=== PATIENT | male | born 2000 | race Caucasian/White ===

== ENCOUNTER 2024-11-03 11:43 | Emergency (ER) | payer OTHER, SELFPAY ==
--- NOTE | ~2024-11-03 | XR_ITS ---
XR elbow LT min 3V Ordering provider: Nikolay Rascon MD History: . lateral elbow pain . Comparison: None. FINDINGS: BONES: No acute fracture or dislocation. JOINT SPACES: Normal. SOFT TISSUES: Normal. No definite joint effusion. IMPRESSION: No acute osseous abnormality left elbow. Reviewed, dictated and finalized at location A.
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
[2024-11-03 11:54] VITALS: BP 141/88; PULSE 62; RESP 20; TEMP 36.6; O2SAT 100
[2024-11-03] MEDS: IBUPROFEN 400 MG TABLET 800 MG PO (13:27)
[2024-11-03] MEDS: HYDROcodone/acetaminophen (*CRX) 5-325 MG TABLET 1 TAB PO (13:28)
[2024-11-03] MEDS: methocarbamoL 750 MG TABLET PO (13:28)
--- OUTSIDE RECORDS SUMMARY | 2024-11-03 13:33 | XMS_ITS | Continuity of Care Document ---
Author Organization [facility] Address [address] [facility] [place] [address] Phone Care Team Providers Care Appellate Law Clerk Name Role Phone Robin Etienne MD Unavailable Unavailable Allergies, Adverse Reactions, Alerts Substance Reaction Status Criticality Penicillins Active No Information Medications Medication Instructions Dosage Effective Dates (start - stop) Status Comments Adderall 20 mg tablet take 20 mg tablet in the morning and 10 mg around early afternoon - Active meloxicam 15 mg tablet take 1 tablet by oral route every day 15 MG - Active Procedures Procedure Date OFFICE/OUTPATIENT VISIT, EST OFFICE/OUTPATIENT VISIT, EST OFFICE/OUTPATIENT VISIT, EST OFFICE/OUTPATIENT VISIT, EST OFFICE/OUTPATIENT VISIT, EST OFFICE/OUTPATIENT VISIT, EST OFFICE/OUTPATIENT VISIT, EST OFFICE/OUTPATIENT VISIT, EST PREV VISIT, NEW, AGE 18-39 OFFICE/OUTPATIENT VISIT, NEW Advance Directives Directive Yes / No Effective Date File Name No Information Encounters Encounter Description Practice Location Reason(s) For Visit Diagnoses Date Provider Providers Copied on Encounter [facility], [address] [place], [place], [id number], tel:[phone] [facility] No Information Lowell Kelly. [address] [facility] [place], [id number] , [place]. tel:[phone] OFFICE/OUTPA TIENT VISIT, [facility], [address], [place], [place], [id number], [place] tel:[phone] [facility] ADD (chief complaint) anxiety1 (chief complaint) back pain1 (chief complaint) Generalized Anxiety DisorderAttention deficitLumbago 4 Lowell Connell [address], [place], [place], [address] , [place]. tel:[phone] OFFICE/OUTPA TIENT VISIT, [facility], [address], [place], [place], [address], [place] [phone] [facility] ADD (chief complaint) HTN (chief complaint) anxiety1 (chief complaint) Attention deficitEssential (primary) hypertensionGeneral ized Anxiety Disorder 3 Lowell Connell [address], [place], [place], [address] , [place]. tel: [phone] OFFICE/OUTPA TIENT VISIT, [facility], [address], [place], [address], [place] tel:[phone] [facility] ADD (chief complaint) anxiety1 (chief complaint) Attention deficitEssential (primary) hypertensionGeneral ized Anxiety Disorder 3 Lowell Connell [address], [place], [place], [address] , [place]. tel:[phone] OFFICE/OUTPA TIENT VISIT, [facility], [address], [place], [address], [place] tel:[phone] [facility] ADD (chief complaint) urinary frequency1 (chief complaint) Urinary frequencyAttention deficitEssential (primary) hypertensionAbnorma l weight loss 3 Lowell Connell [address], [place], [address] , [place]. [phone] OFFICE/OUTPA TIENT VISIT, [facility], [address], [place], [address], [place] tel:[phone] [facility] ADD (chief complaint) Attention deficit 2 Etienne Robin. [address], [place], [address] , [place]. tel:[phone] OFFICE/OUTPA TIENT VISIT, [facility], [address], [place], [address], [place] tel:[phone] [facility] anxiety1 (chief complaint) fatigue1 (chief complaint) weight los1 (chief complaint) HypersomniaGenerali zed Anxiety DisorderAttention deficitAbnormal weight loss 2 Etienne Robin. [address], [place], [place], [address] , [place]. tel:[phone] OFFICE/OUTPA TIENT VISIT, [facility], [address], [place], [address], [place] tel:[phone] [facility] anxiety1 (chief complaint) ADD (chief complaint) HypersomniaGenerali zed Anxiety Disorder 2 Etienne Robin. [address], [place], [address] , [place]. tel:[phone] OFFICE/OUTPA TIENT VISIT, [facility], [address], [place], [address], [place] tel:[phone] [facility] fatigue1 (chief complaint) high b12 (chief complaint) anxiety1 (chief complaint) ADD (chief complaint) Attention deficitGeneralized hyperhidrosisGenera lized Anxiety DisorderHypersomnia Other specified hyperalimentation 1 Lowell Robin. [address], [place], [address] , [place]. tel:[phone] PREV VISIT, NEW, AGE 18-39 [facility], [address], [place], [address], [place] tel:[phone] [facility] PHysical (chief complaint) Encounter for general adult medical exam w abnormal findingsFatigueAtte ntion deficitGeneralized hyperhidrosisGenera lized Anxiety DisorderDecreased libido 1 Lowell Kelly. [address], [place], [address] , [place]. tel: [phone] Family History Family Member Type Diagnosis Age At Onset Father Problem unknown Mother Problem Hypertension Brother Problem Depression Payers Payer name Insurance type Covered democrat ID Authoriza tion(s) No Information Social History Type Description Quantity Date Captured Comments Sex Male Smoking Status No Information Chief Complaint And Reason For Visit No Information Plan Of Treatment Date Type Action Status Referral Ordered: LUMBAR XRAY AP AND LAT ONLY ordered Referral Ordered: SLEEP STUDY, ATTENDED ordered History Of Present Illness Encounter Date Complaint History Of Prese nt Illness back pain1 Pt has chronic a nd intermittent low back pain for close to 10 years Pt used to play sports Pt denies any injury Pt denies any sciatica or any neuropathy Pt denies any loss of bowel or bladder control or saddle area paresthesia. pt has been having persistent low back pain x 2 months, worse in the morning and improves with ambulation Pt has not tried any medication for it. Pt c/o sharp and dull ache. anxiety1 Pt has chronic a nxiety Pt takes propranolol PRN and doing ok Pt denies any chest pain or headache or sob ADD Patient has ADD. Patient has inattentive type. Patient feels scatterbrained. Patient feel poor focus and difficulty completing tasks. Patient states that Adderall is helping with symptoms. Patient feels more focused. Pt feels more energy. Patient denies any headache, dry mouth, headache, chest pain. Patient denies any appetite loss. HTN Pt takes propran olol and his bp is ok Pt denies any dizziness, chest pain sob anxiety1 Pt has chronic a nxiety Pt denies any depression or any suicidal or homicidal thought Pt denies any crying spells. Pt states that propranolol works well to control his anxiety. he run out of propranolol for several days and his anxiety is getting worse ADD Patient has ADD. Patient has inattentive type. Patient feels scatterbrained. Patient feel poor focus and difficulty completing tasks. Patient states that Adderall is helping with symptoms. Patient feels more focused. Pt feels more energy. Patient denies any headache, dry mouth, headache, chest pain. Patient denies any appetite loss. anxiety1 Pt has been havi ng more anxiety lately with frequent panic attacks Pt denies any depression or any suicidal or homicidal thought .Pt denies any crying spells. Pt also notices that his BP has been around 150/90 at home. Pt denies any chest pain or headache ADD Patient has ADD. Patient has inattentive type. Patient feels scatterbrained. Patient feel poor focus and difficulty completing tasks. Patient states that Adderall is helping with symptoms. Patient feels more focused. Pt feels more energy. Patient denies any headache, dry mouth, headache, chest pain. Patient denies any appetite loss. ADD Patient has ADD. Patient has inattentive type. Patient feels scatterbrained. Patient feel poor focus and difficulty completing tasks. Patient states that Adderall is helping with symptoms. Patient feels more focused. Pt feels more energy. Patient denies any headache, dry mouth, headache, chest pain. Patient denies any appetite loss. urinary frequency1 Pt c/o urinar y frequency x 6 months. Pt also c/o dry skin, some mild dizziness and orthostasis. Pt denies any chest pain or headache pt feels fatigue Pt has mild HTn Pt denies any chest pain or headache Pt denies any dysuria or penile discharge ADD Patient has ADD. Patient has inattentive type. Patient feels scatterbrained. Patient feel poor focus and difficulty completing tasks. Patient states that Adderall is helping with symptoms. Patient feels more focused. Pt feels more energy. Patient denies any headache, dry mouth, headache, chest pain. Patient denies any appetite loss. weight los1 Pt has been inte ntionally losing weight. Pt denies any nausea, vomiting, appetite loss, early satiety, GI bowel change, GERD, blood in stool, etc fatigue1 Pt has hypersomn ia and fatigue with ADD pt states that adderall is working very well for him. he states that he feels more alert and awake and more focused with concentration during the day. Pt denies any insomnia. Pt denies any side effects. Pt states that he has been taking 10 mg adderall BID since 20 mg in AM does not last very long and he feels loss of medication effects in the early afternoon. anxiety1 Pt has mild anxi ety symptoms. Pt denies any depression or any suicidal or homicidal thought Pt denies any crying spells. Pt has not been taking propranolol for a while since his anxiety is improving with adderall. Pt denies any chest pain or palpitation. ADD Pt has hypersomn ia and fatigue with ADD pt states that adderall is working very well for him. Pt could not afford vyvanse. he states that he feels more alert and awake and more focused with concentration during the day. Pt denies any insomnia. Pt denies any side effects anxiety Pt has mild anxi ety symptoms Pt denies any depression or any suicidal or homicidal thought Pt denies any crying spells. Pt has been taking propranolol on average once per day and some day he does not have to take at all. He states that it is working well for his anxiety ADD Patient has ADD symptoms. Patient feels scatterbrained. Patient feel poor focus and difficulty completing tasks, which is affecting his work as well. 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 Pt also has hard time following instructions. Pt states that along with his daily fatigue, he feels very poorly throughout the day and also has poor performance at work as well. anxiety1 Pt has chronic a nxiety with mild depression Pt has panic attacks. Pt denies any suicidal or homicidal thought Pt denies any crying spells. Pt states that propranolol is really helping him with his anxiety symptoms .He also feels much less sweaty around his armpit with propranolol. Pt only takes propranolol PRn and on average once per day, which is working well so far. Pt denies any chest pain or sob or dizziness. high b12 Pt has high B12. Pt has been taking B12 supplement, which he stopped after lab. He took B12 due to fatigue fatigue Pt feels extreme ly fatigue chronically. Pt does snore at night. He wakes up feeling tired and feeling severely fatigue throughout the day as well. Pt had negative sleep study PHysical Pt needs annual physical Pt thinks that he may have low T. pt has insomnia and he wakes up frequently at night for unknown reason. Pt denies any need to use bathroom at night and he denies any sob at night .Pt does not think he snores at night but his g/f states that he snores sometimes but not loud. Pt feels very fatigue after waking up and he feels tired all day. Pt states that the fatigue causes him to have poor motivation during the day. Pt feels that he has poor libido without ED. . Pt feels mildly depressed .Pt denies any suicidal or homicidal thought Pt denies any crying spells .Pt took lexapro several years ago which did help but made him feeling emotionless so he weaned himself off the lexapro long time ago Pt denies any suicidal or homicidal thought. Pt has occasional crying spells. Pt also feels very difficulty with focus and concentration. Pt has hard time completing tasks. Pt feels easily distracted. Pt feels overwhelmed. Pt has hard time organizing himself .Pt does use pre-work out sometimes but he does not use any testosterone supplement currently. He did use SARMs one years ago. Pt denies any testicular pain or nodule or atrophy. Pt also has hyperhidrosis both armpit and social anxiety as well. Instructions Date Instruction Additional Infor belen No Information Assessments Type Assessment Date No Information
--- OUTSIDE RECORDS SUMMARY | 2024-11-03 13:33 | XMS_ITS | Referral Summary ---
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 (Primary Dx); Chronic anxiety from Last 3 Months Allergies Active Allergy Reactions Criticality Noted Date Comments Amoxicillin-Pot Clavulanate Penicillin G Rash Medium 02/18/2024 Medications propranoloL (INDERAL) 20 mg tablet Take 1 tablet (20 mg total) by mouth 2 (two) times a day as needed (180) 180 tablet 1 02/18/2024 Active dextroamphetamin e-amphetamine (ADDERALL) 10 mg tablet Take 1 tablet (10 mg total) by mouth 2 (two) times a day 60 tablet 07/17/2024 Active Active Problems Problem Noted Date Diagnosed Date Underweight 08/31/2024 Attention deficit disorder (ADD) without hyperac tivity 02/16/2024 Assessment & Plan (09/02/2024 11:35 AM GENERAL PEDIATRICIAN): Continue Adderall at same dosage. Well controlled. Assessment & Plan (05/25/2024 1:22 PM GENERAL PEDIATRICIAN): Continue Adderall at same dosage. Well controlled. Chronic anxiety 02/16/2024 Assessment & Plan (09/02/2024 11:35 AM GENERAL PEDIATRICIAN): Continue Inderal at same dosage. Well controlled. Assessment & Plan (05/25/2024 1:22 PM GENERAL PEDIATRICIAN): Continue Inderal at same dosage. Well controlled. Chordee 04/25/2016 Immunizations Immunization Administration Dates Next Due DTaP 05/12/2003 HiB 05/12/2003 IPV 05/12/2003 Influenza, Trivalent, IM (MDV) 07/25/2012 Influenza, Unspecified 05/26/2024(Deferr ed: Patient decision),04/14/2023(Deferred: Patient decision),05/03/2005,04/13/2004 MMR 05/12/2003 Meningococcal MCV4P (Menactra) 04/26/2017,2013 Tdap 11/01/2022,02/21/2011 Varicella 02/21/2011 Social History Tobacco Use Types Packs/Day Years Used Date Smoking Tobacco: Former Cigarettes 0.3 3.3 2 2019 Passive Smoke Exposure: Past Tobacco Cessation:Counseling Given: No AUDIT-C Answer Date Recorded Q1: How often do you have a drink containing alc ohol? 2-3 times a week 09/03/2024 Q2: How many drinks containi ng alcohol do you have on a typical day when you are drinking? 1 or 2 09/03/2024 Q3: How often do you have si x or more drinks on one occasion? Never 09/03/2024 PHQ-2 Answer Date Recorded PHQ-2 Total Score (If total score is 3 or more points, staff should administer the PHQ-9) 0 09/03/2024 Sex and Gender Information Value Date Recorded Sex Assigned at Not on file Legal Sex Male 6:05 AM GENERAL PEDIATRICIAN Gender Identity Not on file Sexual Orientation Not on file Last Filed Vital Signs Vital Sign Reading Time Taken Comments Blood Pressure 124/78 09/03/2024 11:09 AM GENERAL PEDIATRICIAN Pulse 70 09/03/2024 11:09 AM GENERAL PEDIATRICIAN Temperature 36.4 C (97.6 F) 09/03/2024 11:09 AM GENERAL PEDIATRICIAN Respiratory Rate 16 09/03/2024 11:0 9 AM GENERAL PEDIATRICIAN Oxygen Saturation 100% 09/03/2024 11: 09 AM GENERAL PEDIATRICIAN Inhaled Oxygen Concentration - - Weight 79.7 kg (175 lb 12.8 oz) 025 11:09 AM GENERAL PEDIATRICIAN Height 188 cm (6' 2.02 ) 09/03/2024 11: 09 AM GENERAL PEDIATRICIAN Body Mass Index 22.56 09/03/2024 11:09 AM GENERAL PEDIATRICIAN Plan of Treatment Not on file Insurance [facility] Care Teams Licensed Esthetician Relationship Specialty Start Date End Date nUruly Rouse MD [address] [place] [address] PCP - General Family Medicine 02/18/24
--- OUTSIDE RECORDS SUMMARY | 2024-11-03 13:33 | XMS_ITS | Clinical Summary ---
Author Organization [facility] [address] [facility] Address [address] [place] [address] Care Team Providers Care Radio Board Operator Announcer Name Role Phone Unruly Rouse MD Primary Care Provider [phone]- [phone] Allergies Active Allergy Reactions Criticality Noted Date [...] 02/16/2024 Assessment & Plan (09/02/2024 11:35 AM GOODWILL REPRESENTATIVE): Continue Adderall at same dosage. Well controlled. Assessment & Plan (05/25/2024 1:22 PM GOODWILL REPRESENTATIVE): Continue Adderall at same dosage. Well controlled. Chronic anxiety 02/16/2024 Assessment & Plan (09/02/2024 11:35 AM GOODWILL REPRESENTATIVE): Continue Inderal at same dosage. Well controlled. Assessment & Plan (05/25/2024 1:22 PM GOODWILL REPRESENTATIVE): Continue Inderal at same dosage. Well controlled. Chordee 04/25/2016 Encounters Date Type Department Care Team Description 09/03/2024 11:15 AM GOODWILL REPRESENTATIVE Office Visit [facility] Primary Care [address] [place] [address] Unruly Rouse MD Attention deficit disorder (ADD) without hyperactivity (Primary Dx); Chronic anxiety from Last 3 Months Immunizations Immunization Administration Dates Next Due DTaP 05/12/2003 HiB 05/12/2003 IPV 05/12/2003 Influenza, Trivalent, IM (MDV) 07/25/2012 Influenza, Unspecified 05/26/2024(Deferr ed: Patient decision),04/14/2023(Deferred: Patient decision),05/03/2005,04/13/2004 MMR 05/12/2003 Meningococcal MCV4P (Menactra) 04/26/2017,2013 Tdap 11/01/2022,02/21/2011 Varicella 02/21/2011 Surgical History Surgery Date Site/Laterality Comments WISDOM TOOTH EXTRACTION SKIN CANCER EXCISION back THYROID SURGERY Medical History Medical History Date Comments ADHD (attention deficit hyperactivity disorder) Tourette syndrome Mild sleep apnea Family History Medical History Relation Name Comments Hypertension Father Breast cancer Mother Hypertension Mother Family history of hypertension - (Added by TW Conv) Relation Name Status Comments Father Alive Mother Alive Social History Tobacco Use Types Packs/Day Years [...] on file Legal Sex Male 6:05 AM GOODWILL REPRESENTATIVE Gender Identity Not on file Sexual Orientation Not on file Obstetrics History Last Filed Vital Signs Vital Sign Reading Time Taken Comments Blood Pressure 124/78 09/03/2024 11:09 AM GOODWILL REPRESENTATIVE Pulse 70 09/03/2024 11:09 AM GOODWILL REPRESENTATIVE Temperature 36.4 C (97.6 F) 09/03/2024 11:09 AM GOODWILL REPRESENTATIVE Respiratory Rate 16 09/03/2024 11:0 9 AM GOODWILL REPRESENTATIVE Oxygen Saturation 100% 09/03/2024 11: 09 AM GOODWILL REPRESENTATIVE Inhaled Oxygen Concentration - - Weight 79.7 kg (175 lb 12.8 oz) 025 11:09 AM GOODWILL REPRESENTATIVE Height 188 cm (6' 2.02 ) 09/03/2024 11: 09 AM GOODWILL REPRESENTATIVE Body Mass Index 22.56 09/03/2024 11:09 AM GOODWILL REPRESENTATIVE Plan of Treatment Health Maintenance Due Date Last Done Comments Hepatitis C Screening 1999 Varicella Vaccines (2 of 2 - 2-dose childhood series) 05/16/2011 02/21/2011 HPV Vaccines (1 - Male 3-dos e series) 2014 Hepatitis B Screening 2017 Regular Well Visit/Exam 18-64 2017 Covid-19 Vaccine (2 - 2023-2 5 season) 2024 09/22/2020 Influenza Vaccine (#1) 2025 3, 05/03/2005, 04/13/2004 Postponed from 03/15/2024 (Patient declined, but will receive in the future) Depression Screening 09/03/2025 09/03/2024, 05/26/2024, 02/18/2024 DTaP/Tdap/Td Vaccine (4 - Td or Tdap) 11/01/2032 11/01/2022, 02/21/2011, 05/12/2003 Pneumococcal vaccine <65 Aged Out No longer eligible based on patient's age to complete this topic Insurance [facility] Care Teams Radio Board Operator Announcer Relationship Specialty Start Date End Date Unruly Rouse MD [address] [place] [address] PCP - General Family Medicine 02/18/24
--- OUTSIDE RECORDS SUMMARY | 2024-11-03 13:33 | XMS_ITS | Patient Health Record ---
Author Organization [facility] Planning Address [address] [address] [address] [place] [address] Care Team Providers Care Technical Training Specialist Name Role Phone Abimael Braun Primary Care Provider Reason For Referral No Information Social History Tobacco Use: Social History Observation Description Date Details (start date - stop date) Current Smoker NA - NA Tobacco Use/Smoking Question Answer Notes Are you a current smoker How often do you smoke cigarettes? every day How many cigarettes a day do you smoke? 5 or les s Problems No Known Problems Plan Of Treatment No Information Insurance Providers Payer Name Payer Address Payer Phone Subscriber Number Group Number Insured Name Patient Relationship to Insured Coverage Start Date [facility]age End [facility] [address] [place] [address] [id number] Lexa Schmitt Self - patient is the insured 2020 Medical (General) History Surgical History Surgery Date(Month/Year)
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
--- OUTSIDE RECORDS SUMMARY | 2024-11-03 14:06 | XMS_ITS | Continuity of Care Document ---
Author Organization [facility] Address [address] [facility] [place] [address] Phone Care Team Providers Care Poultry Picking Machine Tender Name Role Phone Robin Etienne MD Unavailable [...] Diagnoses Date Provider Providers Copied on Encounter [facility], [address] [place], [place], [id number], tel:[phone] [facility] No Information Lowell Kelly. [address] [facility] [place], [place], [address] , [place]. tel:[phone] OFFICE/OUTPA TIENT VISIT, [facility], [address], [place], [place], [id number], [place] tel:[phone] [facility] ADD (chief complaint) anxiety1 (chief complaint) back pain1 (chief complaint) Generalized Anxiety DisorderAttention deficitLumbago 4 Lowell Connell [address], [place], [place], [address] , [place]. tel:[phone] OFFICE/OUTPA TIENT VISIT, [facility], [address], [place], [place], [address], [place] [phone] [facility] ADD (chief complaint) HTN (chief complaint) anxiety1 (chief complaint) Attention deficitEssential (primary) hypertensionGeneral ized Anxiety Disorder 3 Lowell Connell [address], [address], [place], [place], [address] , [place]. tel:[phone] OFFICE/OUTPA TIENT VISIT, [facility], [address], [place], [place], [address], [place] tel:[phone] [facility] ADD (chief complaint) anxiety1 (chief complaint) Attention deficitEssential (primary) hypertensionGeneral ized Anxiety Disorder 3 Lowell Connell [address], [place], [place], [address] , [place]. tel:[phone] OFFICE/OUTPA TIENT VISIT, [facility], [address], [place], [place], [address], [place] tel:[phone] [facility] ADD (chief complaint) urinary frequency1 (chief complaint) Urinary frequencyAttention deficitEssential (primary) hypertensionAbnorma l weight loss 3 Lowell Connell [address], [place], [place], [address] , [place]. [phone] OFFICE/OUTPA TIENT VISIT, [facility], [address], [place], [place], [address], [place] tel:[phone] [facility] ADD (chief complaint) Attention deficit 2 Etienne Robin. [address], [place], [place], [address] , [place]. tel:[phone] OFFICE/OUTPA TIENT VISIT, [facility], [address], [place], [place], [address], [place] tel:[phone] [facility] anxiety1 (chief complaint) fatigue1 (chief complaint) weight los1 (chief complaint) HypersomniaGenerali zed Anxiety DisorderAttention deficitAbnormal weight loss 2 Etienne Robin. [address], [place], [place], [address] , [place]. tel:[phone] OFFICE/OUTPA TIENT VISIT, [facility], [address], [place], [place], [address], [place] tel:[phone] [facility] anxiety1 (chief complaint) ADD (chief complaint) HypersomniaGenerali zed Anxiety Disorder 2 Etienne Robin. [address], [place], [place], [address] , [place]. tel:[phone] OFFICE/OUTPA TIENT VISIT, [facility], [address], [place], [place], [address], [place] tel:[phone] [facility] fatigue1 (chief complaint) high b12 (chief complaint) anxiety1 (chief complaint) ADD (chief complaint) Attention deficitGeneralized hyperhidrosisGenera lized Anxiety DisorderHypersomnia Other specified hyperalimentation 1 Lowell Robin. [address], [place], [place], [address] , [place]. tel:[phone] PREV VISIT, NEW, AGE 18-39 [facility], [address], [place], [place], [address], [place] tel:[phone] [facility] PHysical (chief complaint) Encounter for general adult medical exam w abnormal findingsFatigueAtte ntion deficitGeneralized hyperhidrosisGenera lized Anxiety DisorderDecreased libido 1 Lowell Kelly. [address], [place], [place], [address] , [place]. [phone] Family History Family Member Type Diagnosis Age At Onset Father Problem unknown Mother Problem Hypertension Brother Problem Depression Payers Payer name Insurance type Covered libertarian ID Authoriza tion(s) No Information Social History Type Description Quantity Date Captured Comments Sex Male Smoking Status No Information Chief Complaint And Reason For Visit No Information Plan Of Treatment Date Type Action Status Referral Ordered: LUMBAR XRAY AP AND LAT ONLY ordered Referral Ordered: SLEEP STUDY, ATTENDED ordered History Of Present Illness Encounter Date Complaint History Of Prese nt Illness ADD Patient has ADD. Patient has inattentive type. Patient feels scatterbrained. Patient feel poor focus and difficulty completing tasks. Patient states that Adderall is helping with symptoms. Patient feels more focused. Pt feels more energy. Patient denies any headache, dry mouth, headache, chest pain. Patient denies any appetite loss. anxiety1 Pt has chronic a nxiety Pt takes propranolol PRN and doing ok Pt denies any chest pain or headache or sob back pain1 Pt has chronic a nd [...] it. Pt c/o sharp and dull ache. HTN Pt takes propran olol and his bp is ok Pt denies any dizziness, chest pain sob ADD Patient has ADD. Patient has inattentive type. Patient feels scatterbrained. Patient feel poor focus and difficulty completing tasks. Patient states that Adderall is helping with symptoms. Patient feels more focused. Pt feels more energy. Patient denies any headache, dry mouth, headache, chest pain. Patient denies any appetite loss. anxiety1 Pt has chronic a nxiety Pt [...] denies any appetite loss. anxiety1 Pt has mild anxi ety symptoms. Pt denies any depression or any suicidal or homicidal thought Pt denies any crying spells. Pt has not been taking propranolol for a while since his anxiety is improving with adderall. Pt denies any chest pain or palpitation. fatigue1 Pt has hypersomn ia and fatigue [...] of medication effects in the early afternoon. weight los1 Pt has been inte ntionally losing weight. Pt denies any nausea, vomiting, appetite loss, early satiety, GI bowel change, GERD, blood in stool, etc anxiety1 Pt has mild anxi ety symptoms Pt denies any depression or any suicidal or homicidal thought Pt denies any crying spells. Pt has been taking propranolol on average once per day and some day he does not have to take at all. He states that it is working well for his anxiety ADD Pt has hypersomn ia and fatigue with ADD pt states that adderall is working very well for him. Pt could not afford vyvanse. he states that he feels more alert and awake and more focused with concentration during the day. Pt denies any insomnia. Pt denies any side effects fatigue1 Pt feels extreme ly fatigue chronically. Pt does snore at night. He wakes up feeling tired and feeling severely fatigue throughout the day as well. Pt had negative sleep study high b12 Pt has high B12. Pt has been taking B12 supplement, which he stopped after lab. He took B12 due to fatigue anxiety1 Pt has chronic a nxiety with [...] any chest pain or sob or dizziness. ADD Patient has ADD symptoms. Patient feels scatterbrained. Patient feel poor focus and difficulty completing tasks, which is affecting his work as well. 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 Pt also has hard time following instructions. Pt states that along with his daily fatigue, he feels very poorly throughout the day and also has poor performance at work as well. PHysical Pt needs annual physical Pt thinks [...]
--- OUTSIDE RECORDS SUMMARY | 2024-11-03 14:06 | XMS_ITS | Referral Summary ---
Author Organization [facility] [address] [facility] Address [address] [place] [address] Care Team Providers Care Vice President Of Software Development Name Role Phone Unruly Rouse MD Primary Care Provider [phone] Encounters Date Type Department Care Team Description 09/03/2024 11:15 AM CRIME SCENE EXAMINER Office Visit [facility] [address] [place] [address] Unruly Rouse MD Attention deficit [...] 02/16/2024 Assessment & Plan (09/02/2024 11:35 AM CRIME SCENE EXAMINER): Continue Adderall at same dosage. Well controlled. Assessment & Plan (05/25/2024 1:22 PM CRIME SCENE EXAMINER): Continue Adderall at same dosage. Well controlled. Chronic anxiety 02/16/2024 Assessment & Plan (09/02/2024 11:35 AM CRIME SCENE EXAMINER): Continue Inderal at same dosage. Well controlled. Assessment & Plan (05/25/2024 1:22 PM CRIME SCENE EXAMINER): Continue Inderal at same dosage. Well controlled. [...] on file Legal Sex Male 6:05 AM CRIME SCENE EXAMINER Gender Identity Not on file Sexual Orientation Not on file Last Filed Vital Signs Vital Sign Reading Time Taken Comments Blood Pressure 124/78 09/03/2024 11:09 AM CRIME SCENE EXAMINER Pulse 70 09/03/2024 11:09 AM CRIME SCENE EXAMINER Temperature 36.4 C (97.6 F) 09/03/2024 11:09 AM CRIME SCENE EXAMINER Respiratory Rate 16 09/03/2024 11:0 9 AM CRIME SCENE EXAMINER Oxygen Saturation 100% 09/03/2024 11: 09 AM CRIME SCENE EXAMINER Inhaled Oxygen Concentration - - Weight 79.7 kg (175 lb 12.8 oz) 025 11:09 AM CRIME SCENE EXAMINER Height 188 cm (6' 2.02 ) 09/03/2024 11: 09 AM CRIME SCENE EXAMINER Body Mass Index 22.56 09/03/2024 11:09 AM CRIME SCENE EXAMINER Plan of Treatment Not on file Insurance * Guarantor: Lexa Schmitt Account Type Relation to Patient Date of Phone Billing Address Personal/Family Self [address] [facility] [place] [address] [facility] Care Teams Vice President Of Software Development Relationship Specialty Start Date End Date Unruly Rouse MD [address] [place] [address] PCP - General Family Medicine 02/18/24
--- OUTSIDE RECORDS SUMMARY | 2024-11-03 14:06 | XMS_ITS | Clinical Summary ---
Author Organization [facility] [address] [facility] Address [address] [place] [address] Care Team Providers Care Surveillance Officer Name Role Phone Unruly Rouse MD Primary Care Provider [phone] Allergies Active Allergy Reactions Criticality Noted Date [...] 02/16/2024 Assessment & Plan (09/02/2024 11:35 AM VIDEO PRODUCTION COORDINATOR): Continue Adderall at same dosage. Well controlled. Assessment & Plan (05/25/2024 1:22 PM VIDEO PRODUCTION COORDINATOR): Continue Adderall at same dosage. Well controlled. Chronic anxiety 02/16/2024 Assessment & Plan (09/02/2024 11:35 AM VIDEO PRODUCTION COORDINATOR): Continue Inderal at same dosage. Well controlled. Assessment & Plan (05/25/2024 1:22 PM VIDEO PRODUCTION COORDINATOR): Continue Inderal at same dosage. Well controlled. [place] 04/25/2016 Encounters Date Type Department Care Team Description 09/03/2024 11:15 AM VIDEO PRODUCTION COORDINATOR Office Visit [facility] Primary [facility] [address] [place] [address] Unruly Rouse MD Attention deficit [...] on file Legal Sex Male 6:05 AM VIDEO PRODUCTION COORDINATOR Gender Identity Not on file Sexual Orientation Not on file Obstetrics History Last Filed Vital Signs Vital Sign Reading Time Taken Comments Blood Pressure 124/78 09/03/2024 11:09 AM VIDEO PRODUCTION COORDINATOR Pulse 70 09/03/2024 11:09 AM VIDEO PRODUCTION COORDINATOR Temperature 36.4 C (97.6 F) 09/03/2024 11:09 AM VIDEO PRODUCTION COORDINATOR Respiratory Rate 16 09/03/2024 11:0 9 AM VIDEO PRODUCTION COORDINATOR Oxygen Saturation 100% 09/03/2024 11: 09 AM VIDEO PRODUCTION COORDINATOR Inhaled Oxygen Concentration - - Weight 79.7 kg (175 lb 12.8 oz) 025 11:09 AM VIDEO PRODUCTION COORDINATOR Height 188 cm (6' 2.02 ) 09/03/2024 11: 09 AM VIDEO PRODUCTION COORDINATOR Body Mass Index 22.56 09/03/2024 11:09 AM VIDEO PRODUCTION COORDINATOR Plan of Treatment Health Maintenance Due Date [...] patient's age to complete this topic Insurance [facility] Care Teams Surveillance Officer Relationship Specialty Start Date End Date Unruly Rouse MD [address] [place] [address] PCP - General Family Medicine 02/18/24
[2024-11-03 14:20] VITALS: BP 138/79; PULSE 88; RESP 18; O2SAT 99
== END 2024-11-03 14:20 | disposition home or self-care (01) ==
PROVIDERS: Emergency Provider Student in an Organized Health Care Education/Training Program
DX: S13.4XXA Sprain of ligaments of cervical spine, initial encounter (principal); S50.812A Abrasion of left forearm, initial encounter; S50.312A Abrasion of left elbow, initial encounter; S80.211A Abrasion, right knee, initial encounter; S00.31XA Abrasion of nose, initial encounter; S00.211A Abrasion of right eyelid and periocular area, initial encounter; V43.52XA Car driver injured in collision with other type car in traffic accident, initial encounter
CPT/HCPCS: 72125; 73080; 73564; 99284; A9270